=== PATIENT | male | born 1955 | race Caucasian/White ===

== ENCOUNTER 2020-05-25 13:18 | Inpatient (IN) ==
[2020-05-25 15:27] LABS: ABS Eosinophils 0.1 10^3/ul (0-0.6); ABS Lymphocytes 1.2 10^3/ul (1.0-4.8); ABS Monocytes 1.2 10^3/ul (0-0.8); ABS Neutrophils 7.8 10^3/ul (1.5-7.7); Eosinophil % 0.9 %; Hematocrit 43 % (42-52); Hemoglobin 14.9 g/dL (14.0-18.0); Lymphocyte % 11.4 %; Mean Corpuscular HGB Conc 34 g/dL (31-36); Mean Corpuscular Hemoglobin 31 pg (27-31); Mean Corpuscular Volume 90 fL (80-94); Mean Platelet Volume 7.5 fL (7.4-10.4); Platelet Count 316 10^3/uL (150-450); Red Cell Distribution Width 14 % (10-15); White Blood Count 10.2 10^3/uL (3.5-10.8)
[2020-05-25] MEDS ORDERED: Ondansetron 4 mg VIAL 2 MG/ML 2 ml VIAL IV PRN ×2 (15:35→18:33)
[2020-05-25] MEDS ORDERED: Ondansetron ODT 4 mg TAB 4 MG TAB PO PRN (15:35)
[2020-05-25] MEDS ORDERED: diPHENhydraMINE IV 50 MG/ML 1 ml VIAL (BENADRYL) IV PRN (15:35)
[2020-05-25] MEDS ORDERED: diPHENhydraMINE 25 mg TAB PO PRN (15:35)
[2020-05-25] MEDS ORDERED: Lactulose 30 ml UDC PO PRN (15:35)
[2020-05-25] MEDS ORDERED: Magnesium Hydroxide LIQ 30 ML UDC PO PRN (15:35)
[2020-05-25] MEDS ORDERED: Morphine 2 MG/ML SYRINGE IV PRN (15:35)
[2020-05-25 15:39] LABS: Albumin 4.2 g/dL (3.2-5.2); Albumin/Globulin Ratio 1.2 (1-3); BUN/Creatinine Ratio 28.8 (8-20); C Reactive Protein 110.85 mg/L (<8.01); Calcium 9.5 mg/dL (8.6-10.3); EGFR African American 130.9 (>60); EGFR Non-African American 108.2 (>60); Globulin 3.4 g/dL (2-4); Potassium 4.1 mmol/L (3.5-5.0); Total Bilirubin 0.7 mg/dL (0.2-1.0); Total Protein 7.6 g/dL (6.4-8.9)
[2020-05-25] MEDS ORDERED: Bupivacaine 0.25% SDV 30 ML ONE (16:00)
[2020-05-25] MEDS ORDERED: Lactated Ringers 1000 ml BAG 1,000 ML IV SCH (16:00)
[2020-05-25] MEDS ORDERED: Vancomycin per Pharmacy 1 EA NOTE FOLLOW UP SCH (16:00)
[2020-05-25] MEDS ORDERED: fentaNYL 100 mcg/2 ml 50 MCG/ML VIAL ONE ×3 (16:35→17:13)
[2020-05-25] MEDS ORDERED: Midazolam 2 mg/2 ml VIAL 1 mg/ml 2 ml VIAL (2 mg) ONE (16:36)
[2020-05-25] MEDS ORDERED: Lidocaine 2% PF 5 ML VIAL ONE (16:38)
[2020-05-25] MEDS ORDERED: Propofol 10 MG/ML 20 ML BTL ONE (16:38)
[2020-05-25] MEDS ORDERED: Cefepime 2 GM in Dextrose 2 GM/50 ML BAG IV SCH (17:00)
[2020-05-25] MEDS ORDERED: Vancomycin 1500 MG IV - x ONCE IVPB ONE (17:00)
[2020-05-25] MEDS ORDERED: HYDROmorphone 1 MG/1 ML SYRINGE ONE ×3 (17:17→17:49)
[2020-05-25] MEDS ORDERED: Ondansetron 4 mg VIAL 2 MG/ML 2 ml VIAL ONE (17:32)
[2020-05-25] MEDS ORDERED: fentaNYL 100 mcg/2 ml 50 MCG/ML VIAL IV PRN (18:33)
[2020-05-25] MEDS ORDERED: Naloxone 0.4 mg VIAL 0.4 mg/ml 1 ml VIAL IV PRN (18:33)
[2020-05-25] MEDS ORDERED: HYDROmorphone 1 MG/1 ML SYRINGE IV PRN (18:33)
[2020-05-25] MEDS: Magnesium Hydroxide LIQ 30 ML UDC PO SCH (21:23)
[2020-05-26] MEDS ORDERED: Cefepime 2 GM in Dextrose 2 GM/50 ML BAG IV SCH (05:00)
[2020-05-26] MEDS ORDERED: VANCOMYCIN 1500 MG IVPB SCH (06:00)
[2020-05-26 06:27] LABS: ABS Eosinophils 0.2 10^3/ul (0-0.6); ABS Lymphocytes 0.4 10^3/ul (1.0-4.8); ABS Monocytes 0.6 10^3/ul (0-0.8); ABS Neutrophils 6.4 10^3/ul (1.5-7.7); Eosinophil % 2.7 %; Hematocrit 39 % (42-52); Hemoglobin 13.6 g/dL (14.0-18.0); Lymphocyte % 5.6 %; Mean Corpuscular HGB Conc 35 g/dL (31-36); Mean Corpuscular Hemoglobin 31 pg (27-31); Mean Corpuscular Volume 90 fL (80-94); Mean Platelet Volume 7.1 fL (7.4-10.4); Platelet Count 246 10^3/uL (150-450); Red Blood Count 4.35 10^6 /uL (4.18-5.48); Red Cell Distribution Width 14 % (10-15); White Blood Count 7.7 10^3/uL (3.5-10.8)
[2020-05-26 06:48] LABS: BUN/Creatinine Ratio 31.3 (8-20); C Reactive Protein 105.44 mg/L (<8.01); Calcium 8.2 mg/dL (8.6-10.3); EGFR African American 152.3 (>60); EGFR Non-African American 125.9 (>60); Potassium 4.2 mmol/L (3.5-5.0)
[2020-05-26] MEDS: Vitamin THERAPEUTIC TAB PO SCH (09:31)
[2020-05-26] MEDS: Magnesium Hydroxide LIQ 30 ML UDC PO SCH ×2 (09:57→21:26)
[2020-05-26] MEDS: Heparin 5000 UNITS/ML 1 mL VIAL SUBCUT SCH ×2 (14:15→21:26)
[2020-05-26] MEDS: ceFAZolin VIAL 2 GM in NS 0.9% 100 ml BAG 100 ML IVPB SCH (17:19)
[2020-05-27] MEDS: ceFAZolin VIAL 2 GM in NS 0.9% 100 ml BAG 100 ML IVPB SCH (00:56)
[2020-05-27] MEDS: Heparin 5000 UNITS/ML 1 mL VIAL SUBCUT SCH ×3 (05:19→21:58)
[2020-05-27] MEDS ORDERED: Vancomycin Trough Check NOTE FOLLOW UP ONE (05:30)
[2020-05-27 07:12] LABS: Hematocrit 42 % (42-52); Mean Platelet Volume 7.3 fL (7.4-10.4); Platelet Count 282 10^3/uL (150-450)
[2020-05-27] MEDS: Vitamin THERAPEUTIC TAB PO SCH (09:38)
[2020-05-27] MEDS: ceFAZolin 2 GM PREMIX 2 GM/50 ML BAG IVPB SCH ×2 (09:45→16:37)
[2020-05-27] MEDS: Magnesium Hydroxide LIQ 30 ML UDC PO SCH ×2 (10:02→19:22)
[2020-05-28] MEDS: ceFAZolin 2 GM PREMIX 2 GM/50 ML BAG IVPB SCH ×2 (01:24→08:49)
[2020-05-28] MEDS: Heparin 5000 UNITS/ML 1 mL VIAL SUBCUT SCH ×2 (05:55→14:09)
[2020-05-28 06:53] LABS: Hematocrit 41 % (42-52); Hemoglobin 14.1 g/dL (14.0-18.0); Mean Platelet Volume 7.2 fL (7.4-10.4); Platelet Count 308 10^3/uL (150-450)
[2020-05-28] MEDS: Vitamin THERAPEUTIC TAB PO SCH (08:49)
[2020-05-28] MEDS: Magnesium Hydroxide LIQ 30 ML UDC PO SCH (08:50)
[2020-05-28 14:20] VITALS: BP 160/90
== END 2020-05-28 15:20 | disposition home or self-care (01) | DRG 316 ==
LOC: ED 13:18 → SDS 16:00 → INTOOBSV 16:45 → SSU 16:45
PROVIDERS: ADMIT Orthopaedic Surgery Hand Surgery; ATTEND Orthopaedic Surgery Hand Surgery

== ENCOUNTER 2020-06-08 17:38 | Inpatient (IN) ==
[2020-06-08] MEDS ORDERED: Magnesium Hydroxide LIQ 30 ML UDC PO PRN (17:42)
[2020-06-08] MEDS ORDERED: diPHENhydraMINE 25 mg TAB PO PRN (17:42)
[2020-06-08] MEDS ORDERED: Morphine 2 MG/ML SYRINGE IV PRN (17:42)
[2020-06-08] MEDS ORDERED: Ondansetron ODT 4 mg TAB 4 MG TAB PO PRN (17:42)
[2020-06-08] MEDS ORDERED: Lactulose 30 ml UDC PO PRN (17:42)
[2020-06-08] MEDS ORDERED: Ondansetron 4 mg VIAL 2 MG/ML 2 ml VIAL IV PRN ×2 (17:42→21:17)
[2020-06-08] MEDS ORDERED: diPHENhydraMINE IV 50 MG/ML 1 ml VIAL (BENADRYL) IV PRN (17:42)
[2020-06-08] MEDS ORDERED: D5W 1/2 NS 1000 ml BAG 1,000 ML IV SCH (18:00)
[2020-06-08 18:14] LABS: ABS Eosinophils 0.8 10^3/ul (0-0.6); ABS Lymphocytes 1.1 10^3/ul (1.0-4.8); ABS Monocytes 0.9 10^3/ul (0-0.8); ABS Neutrophils 4.6 10^3/ul (1.5-7.7); Eosinophil % 10.2 %; Hematocrit 46 % (42-52); Hemoglobin 15.6 g/dL (14.0-18.0); Lymphocyte % 14.8 %; Mean Corpuscular HGB Conc 34 g/dL (31-36); Mean Corpuscular Hemoglobin 31 pg (27-31); Mean Corpuscular Volume 91 fL (80-94); Mean Platelet Volume 7.4 fL (7.4-10.4); Platelet Count 421 10^3/uL (150-450); Red Blood Count 5.05 10^6 /uL (4.18-5.48); Red Cell Distribution Width 14 % (10-15); White Blood Count 7.4 10^3/uL (3.5-10.8)
[2020-06-08 18:28] LABS: BUN/Creatinine Ratio 22.4 (8-20); C Reactive Protein 9.77 mg/L (<8.01); Calcium 9.5 mg/dL (8.6-10.3); EGFR African American 109.8 (>60); EGFR Non-African American 90.7 (>60); Potassium 4.7 mmol/L (3.5-5.0)
[2020-06-08] MEDS ORDERED: cefTRIAXone 2 GM ADDV.VIAL ONE (20:05)
[2020-06-08] MEDS ORDERED: Bupivacaine 0.25% SDV 30 ML ONE (20:25)
[2020-06-08] MEDS ORDERED: Propofol 10 MG/ML 20 ML BTL ONE (20:29)
[2020-06-08] MEDS ORDERED: Ondansetron 4 mg VIAL 2 MG/ML 2 ml VIAL ONE (20:29)
[2020-06-08] MEDS ORDERED: Lidocaine 2% PF 5 ML VIAL ONE (20:29)
[2020-06-08] MEDS ORDERED: Midazolam 5 mg/5 ml VIAL 1 mg/ml 5 ml VIAL (5 mg) ONE (20:29)
[2020-06-08] MEDS ORDERED: fentaNYL 100 mcg/2 ml 50 MCG/ML VIAL ONE ×2 (20:29→20:57)
[2020-06-08] MEDS ORDERED: Phenylephrine 40 mcg/mL 10mL (400mcg) SYRINGE ONE (20:47)
[2020-06-08] MEDS ORDERED: EPHEDrine (Pressors) 50 MG/ML VIAL ONE (20:49)
[2020-06-08] MEDS ORDERED: Naloxone 0.4 mg VIAL 0.4 mg/ml 1 ml VIAL IV PRN (21:17)
[2020-06-08] MEDS ORDERED: fentaNYL 100 mcg/2 ml 50 MCG/ML VIAL IV PRN (21:17)
[2020-06-08] MEDS: cefTRIAXone 2 GM ADDV.VIAL 2 GM in NS 0.9% 100 ml BAG 100 ML IV SCH ×2 (21:31→21:32)
[2020-06-08 22:00] LABS: Erythrocyte Sed Rate 8 mm/Hr (0-19)
[2020-06-09] MEDS: Magnesium Hydroxide LIQ 30 ML UDC PO SCH ×4 (00:16→20:36)
[2020-06-09 05:36] LABS: ABS Eosinophils 0.7 10^3/ul (0-0.6); ABS Lymphocytes 1.1 10^3/ul (1.0-4.8); ABS Neutrophils 4.4 10^3/ul (1.5-7.7); Eosinophil % 9.9 %; Hematocrit 41 % (42-52); Hemoglobin 13.5 g/dL (14.0-18.0); Lymphocyte % 15.3 %; Mean Corpuscular HGB Conc 33 g/dL (31-36); Mean Corpuscular Hemoglobin 30 pg (27-31); Mean Corpuscular Volume 91 fL (80-94); Mean Platelet Volume 7.6 fL (7.4-10.4); Nucleated Red Blood Cells % 0.1; Platelet Count 333 10^3/uL (150-450); Red Blood Count 4.47 10^6 /uL (4.18-5.48); Red Cell Distribution Width 14 % (10-15); White Blood Count 7.2 10^3/uL (3.5-10.8)
[2020-06-09 05:55] LABS: BUN/Creatinine Ratio 21.5 (8-20); C Reactive Protein 7.39 mg/L (<8.01); Calcium 8.3 mg/dL (8.6-10.3); EGFR African American 119.5 (>60); EGFR Non-African American 98.7 (>60); Potassium 4.1 mmol/L (3.5-5.0)
[2020-06-09] MEDS: Vitamin THERAPEUTIC TAB PO SCH (09:59)
[2020-06-09] MEDS ORDERED: Hemorrhoidal OINT 1 TUBE PR PRN (10:50)
[2020-06-09] MEDS: Heparin 5000 UNITS/ML 1 mL VIAL SUBCUT SCH ×2 (12:11→21:48)
[2020-06-09] MEDS: cefTRIAXone 2 GM ADDV.VIAL 2 GM in NS 0.9% 100 ml BAG 100 ML IV SCH (17:23)
[2020-06-09] MEDS: ceFAZolin 2 GM PREMIX 2 GM/50 ML BAG IVPB SCH (21:49)
[2020-06-10] MEDS: ceFAZolin 2 GM PREMIX 2 GM/50 ML BAG IVPB SCH ×3 (05:58→21:52)
[2020-06-10] MEDS: Heparin 5000 UNITS/ML 1 mL VIAL SUBCUT SCH ×3 (06:00→21:51)
[2020-06-10] MEDS: Vitamin THERAPEUTIC TAB PO SCH (09:41)
[2020-06-10] MEDS: Magnesium Hydroxide LIQ 30 ML UDC PO SCH ×2 (09:41→20:34)
[2020-06-10] MEDS ORDERED: Buffered Lidocaine 1% SYRIN 1 ml INTRADERM ONE (17:00)
[2020-06-11] MEDS: Heparin 5000 UNITS/ML 1 mL VIAL SUBCUT SCH ×3 (05:42→23:30)
[2020-06-11] MEDS: ceFAZolin 2 GM PREMIX 2 GM/50 ML BAG IVPB SCH ×3 (05:42→23:31)
[2020-06-11] MEDS: Magnesium Hydroxide LIQ 30 ML UDC PO SCH ×2 (07:50→19:30)
[2020-06-11] MEDS: Vitamin THERAPEUTIC TAB PO SCH (09:26)
[2020-06-11] MEDS ORDERED: Anidulafungin 200 MG in NS 0.9% 250 ml 200 ML IVPB ONE (20:00)
[2020-06-12] MEDS: ceFAZolin 2 GM PREMIX 2 GM/50 ML BAG IVPB SCH ×2 (06:25→13:54)
[2020-06-12] MEDS: Heparin 5000 UNITS/ML 1 mL VIAL SUBCUT SCH ×2 (06:28→13:55)
[2020-06-12] MEDS: Vitamin THERAPEUTIC TAB PO SCH (07:37)
[2020-06-12 09:49] LABS: Albumin 3.5 g/dL (3.2-5.2); Albumin/Globulin Ratio 1.5 (1-3); Globulin 2.4 g/dL (2-4); Total Bilirubin 0.5 mg/dL (0.2-1.0); Total Protein 5.9 g/dL (6.4-8.9)
[2020-06-12 11:54] VITALS: BP 136/76
[2020-06-12] MEDS ORDERED: Anidulafungin 100 MG in NS 0.9% 100 ml BAG 100 ML IVPB SCH (20:00)
== END 2020-06-12 18:55 | disposition home or self-care (01) | DRG 316 ==
LOC: ED 17:38 → AA 20:21 → SSU 23:59
PROVIDERS: ADMIT Internal Medicine; ATTEND Orthopaedic Surgery Hand Surgery

== ENCOUNTER 2021-05-13 09:15 | Inpatient (IN) ==
[2021-06-01] MEDS ORDERED: Lactated Ringers 1000 ml BAG 1,000 ML IV SCH (06:00)
[2021-06-01] MEDS ORDERED: Buffered Lidocaine 1% SYRIN 1 ml INTRADERM ONE (06:00)
[2021-06-01] MEDS ORDERED: ceFAZolin 2 GM in NS PREMIX 2 GM/100 ML BAG IVPB ONE (10:29)
[2021-06-01] MEDS ORDERED: ROPIVACAINE 5 MG/ML 30 ML BTL (0.5%) ONE (10:40)
[2021-06-01] MEDS ORDERED: Lidocaine 1% MPF 5 ML VIAL ONE (10:40)
[2021-06-01] MEDS ORDERED: Midazolam 2 mg/2 ml VIAL 1 mg/ml 2 ml VIAL (2 mg) ONE ×2 (12:36→12:45)
[2021-06-01] MEDS ORDERED: Ketamine HCL 50 mg/ml 10 ml VIAL (500 MG) ONE (13:25)
[2021-06-01] MEDS ORDERED: Glycopyrrolate IV 0.2 MG/ML 1 ML VIAL ONE (13:25)
[2021-06-01] MEDS ORDERED: Ropivacaine 5 MG/ML 20 ML VIAL 0.5% (100 MG) ONE (14:47)
[2021-06-01] MEDS ORDERED: Phenylephrine 40 mcg/mL 10mL (400mcg) SYRINGE ONE (15:01)
[2021-06-01] MEDS ORDERED: Ondansetron 4 mg VIAL 2 MG/ML 2 ml VIAL IV PRN (15:39)
[2021-06-01] MEDS ORDERED: Magnesium Hydroxide LIQ 30 ML UDC PO PRN (15:39)
[2021-06-01] MEDS ORDERED: diPHENhydraMINE IV 50 MG/ML 1 ml VIAL (BENADRYL) IV PRN (15:39)
[2021-06-01] MEDS ORDERED: Ondansetron ODT 4 mg TAB 4 MG TAB PO PRN (15:39)
[2021-06-01] MEDS ORDERED: Lactulose 30 ml UDC PO PRN (15:39)
[2021-06-01] MEDS ORDERED: diPHENhydraMINE 25 mg TAB PO PRN (15:39)
[2021-06-01] MEDS ORDERED: Furosemide 20 mg/2 ml IV VIAL ONE (17:44)
[2021-06-01] MEDS: Lactated Ringers 1000 ml BAG 1,000 ML IV SCH (18:45)
[2021-06-01] MEDS: ceFAZolin 1 GM ADVAN 1 GM in NS 0.9% 50 ML 50 ML IVPB SCH (21:30)
[2021-06-01] MEDS: Morphine ER 15 mg TAB ** extended release PO SCH (21:33)
[2021-06-01] MEDS: Magnesium Hydroxide LIQ 30 ML UDC PO SCH (21:34)
[2021-06-02] MEDS: Lactated Ringers 1000 ml BAG 1,000 ML IV SCH (04:52)
[2021-06-02] MEDS: ceFAZolin 1 GM ADVAN 1 GM in NS 0.9% 50 ML 50 ML IVPB SCH ×2 (04:53→13:28)
[2021-06-02 05:46] LABS: Hematocrit 35 % (42-52); Hemoglobin 11.9 g/dL (14.0-18.0); Platelet Count 217 10^3/uL (150-450)
[2021-06-02 06:09] LABS: Calcium 8.3 mg/dL (8.6-10.3); eGFR CKD-EPI 101.8 (>60)
[2021-06-02] MEDS: Morphine ER 15 mg TAB ** extended release PO SCH ×2 (08:23→20:19)
[2021-06-02] MEDS: Vitamin THERAPEUTIC TAB PO SCH (08:23)
[2021-06-02] MEDS: Magnesium Hydroxide LIQ 30 ML UDC PO SCH ×2 (09:09→20:19)
[2021-06-02] MEDS: Enoxaparin 40 MG/0.4 ML SYR SUBCUT SCH (10:36)
[2021-06-02] MEDS ORDERED: Enoxaparin 40 MG/0.4 ML SYR SUBCUT SCH (12:00)
[2021-06-03 06:06] LABS: Hematocrit 35 % (42-52); Hemoglobin 11.7 g/dL (14.0-18.0); Mean Platelet Volume 7.1 fL (7.4-10.4); Platelet Count 213 10^3/uL (150-450)
[2021-06-03] MEDS: Vitamin THERAPEUTIC TAB PO SCH (08:23)
[2021-06-03] MEDS: Morphine ER 15 mg TAB ** extended release PO SCH ×2 (08:23→21:19)
[2021-06-03] MEDS: Magnesium Hydroxide LIQ 30 ML UDC PO SCH ×2 (08:25→21:20)
[2021-06-03 10:44] LABS: Calcium 8.5 mg/dL (8.6-10.3); Potassium 4.1 mmol/L (3.5-5.0); eGFR CKD-EPI 99.4 (>60)
[2021-06-03] MEDS ORDERED: Senna TAB 8.6 mg TAB PO PRN (11:03)
[2021-06-03] MEDS: Enoxaparin 40 MG/0.4 ML SYR SUBCUT SCH (11:18)
[2021-06-04 07:14] LABS: Hematocrit 32 % (42-52); Hemoglobin 11.2 g/dL (14.0-18.0); Mean Platelet Volume 7.4 fL (7.4-10.4); Platelet Count 240 10^3/uL (150-450)
[2021-06-04] MEDS: Vitamin THERAPEUTIC TAB PO SCH (08:30)
[2021-06-04] MEDS: Magnesium Hydroxide LIQ 30 ML UDC PO SCH ×2 (08:40→20:50)
[2021-06-04] MEDS: Morphine ER 15 mg TAB ** extended release PO SCH ×2 (08:40→20:50)
[2021-06-04] MEDS: Enoxaparin 40 MG/0.4 ML SYR SUBCUT SCH (11:21)
[2021-06-05 05:42] LABS: Hematocrit 33 % (42-52); Hemoglobin 11.4 g/dL (14.0-18.0); Mean Platelet Volume 7.1 fL (7.4-10.4); Platelet Count 295 10^3/uL (150-450)
[2021-06-05] MEDS: Magnesium Hydroxide LIQ 30 ML UDC PO SCH ×2 (08:26→21:00)
[2021-06-05] MEDS: Vitamin THERAPEUTIC TAB PO SCH (08:28)
[2021-06-05] MEDS: Morphine ER 15 mg TAB ** extended release PO SCH ×2 (08:29→21:00)
[2021-06-05] MEDS: Enoxaparin 40 MG/0.4 ML SYR SUBCUT SCH (10:35)
[2021-06-06 06:22] LABS: Hematocrit 33 % (42-52); Hemoglobin 11.4 g/dL (14.0-18.0); Mean Platelet Volume 7.1 fL (7.4-10.4); Platelet Count 357 10^3/uL (150-450)
[2021-06-06] MEDS: Vitamin THERAPEUTIC TAB PO SCH (08:34)
[2021-06-06] MEDS: Magnesium Hydroxide LIQ 30 ML UDC PO SCH ×2 (08:35→21:47)
[2021-06-06] MEDS: Morphine ER 15 mg TAB ** extended release PO SCH ×2 (08:35→21:46)
[2021-06-06] MEDS: Enoxaparin 40 MG/0.4 ML SYR SUBCUT SCH (10:57)
[2021-06-06] MEDS ORDERED: Heparin 2 UNITS/ML 1000 mls 1,000 ML IV ONE (11:58)
[2021-06-06] MEDS ORDERED: fentaNYL 100 mcg/2 ml 50 MCG/ML VIAL ONE (12:06)
[2021-06-07 06:21] LABS: ABS Basophils 0.1 10^3/ul (0-0.2); ABS Eosinophils 0.6 10^3/ul (0-0.6); ABS Lymphocytes 1.1 10^3/ul (1.0-4.8); ABS Monocytes 1.4 10^3/ul (0-0.8); ABS Neutrophils 4.7 10^3/ul (1.5-7.7); Eosinophil % 7.1 %; Hematocrit 35 % (42-52); Hemoglobin 11.8 g/dL (14.0-18.0); Lymphocyte % 14.4 %; Mean Corpuscular HGB Conc 34 g/dL (31-36); Mean Corpuscular Hemoglobin 31 pg (27-31); Mean Corpuscular Volume 91 fL (80-94); Mean Platelet Volume 6.9 fL (7.4-10.4); Platelet Count 408 10^3/uL (150-450); Red Cell Distribution Width 14 % (10-15); White Blood Count 7.8 10^3/uL (3.5-10.8)
[2021-06-07 06:50] LABS: Calcium 8.7 mg/dL (8.6-10.3); Magnesium 2.2 mg/dL (1.9-2.7); Potassium 4.8 mmol/L (3.5-5.0); eGFR CKD-EPI 104.1 (>60)
[2021-06-07] MEDS: Morphine ER 15 mg TAB ** extended release PO SCH (09:19)
[2021-06-07] MEDS: Magnesium Hydroxide LIQ 30 ML UDC PO SCH (09:20)
[2021-06-07] MEDS: Vitamin THERAPEUTIC TAB PO SCH (09:34)
[2021-06-07 11:19] VITALS: BP 107/72
== END 2021-06-07 15:46 | disposition home or self-care (01) | DRG 470 ==
LOC: AA 06-01 10:04 → INTOOBSV 06-01 10:04 → SSU 06-01 18:20
PROVIDERS: ADMIT Orthopaedic Surgery Adult Reconstructive Orthopaedic Surgery; ATTEND Orthopaedic Surgery Adult Reconstructive Orthopaedic Surgery

== ENCOUNTER 2022-03-01 07:04 | Inpatient (IN) ==
[~2022-03-01 07:04] MED LIST: Buffered Lidocaine 1% SYRIN 1 ml INTRADERM ONE; Lactated Ringers 1000 ml BAG 1,000 ML IV SCH
[2022-03-01] MEDS ORDERED: ceFAZolin 2 GM PREMIX 2 GM/50 ML BAG ONE (07:15)
[2022-03-01] MEDS ORDERED: Propofol 10 MG/ML 20 ML BTL ONE ×4 (07:23→11:23)
[2022-03-01] MEDS ORDERED: Lidocaine 2% PF 5 ML VIAL ONE (07:24)
[2022-03-01] MEDS ORDERED: ROPIVACAINE 5 MG/ML 30 ML BTL (0.5%) ONE ×2 (07:52→08:28)
[2022-03-01] MEDS ORDERED: Midazolam 2 mg/2 ml VIAL 1 mg/ml 2 ml VIAL (2 mg) ONE ×2 (08:01→09:04)
[2022-03-01] MEDS ORDERED: Glycopyrrolate IV 0.2 MG/ML 1 ML VIAL ONE (09:23)
[2022-03-01] MEDS ORDERED: Ketamine HCL 50 mg/ml 10 ml VIAL (500 MG) ONE (09:23)
[2022-03-01] MEDS ORDERED: Phenylephrine IV 10 MG/ML 1 ml VIAL ONE (09:38)
[2022-03-01] MEDS ORDERED: Acetaminophen IV 1 GM/100ML 1,000 MG/100 ML BAG IV ONE (09:47)
[2022-03-01] MEDS ORDERED: Ondansetron 4 mg VIAL 2 MG/ML 2 ml VIAL ONE (09:50)
[2022-03-01] MEDS ORDERED: Lactulose 30 ml UDC PO PRN (10:10)
[2022-03-01] MEDS ORDERED: Ondansetron ODT 4 mg TAB 4 MG TAB PO PRN (10:10)
[2022-03-01] MEDS ORDERED: Magnesium Hydroxide LIQ 30 ML UDC PO PRN (10:10)
[2022-03-01] MEDS ORDERED: Morphine 2 MG/ML SYRINGE IV PRN (10:10)
[2022-03-01] MEDS ORDERED: Ondansetron 4 mg VIAL 2 MG/ML 2 ml VIAL IV PRN ×2 (10:10→11:37)
[2022-03-01] MEDS ORDERED: Acetaminophen IV 1 GM/100ML 1,000 MG/100 ML BAG IV PRN (11:37)
[2022-03-01] MEDS ORDERED: Naloxone 0.4 mg VIAL 0.4 mg/ml 1 ml VIAL IV PRN (11:37)
[2022-03-01] MEDS ORDERED: fentaNYL 100 mcg/2 ml 50 MCG/ML VIAL IV PRN (11:37)
[2022-03-01] MEDS: Lactated Ringers 1000 ml BAG 1,000 ML IV SCH (14:17)
[2022-03-01] MEDS: ceFAZolin 1 GM ADVAN 1 GM in NS 0.9% 50 ML 50 ML IVPB SCH (16:12)
[2022-03-01] MEDS: Magnesium Hydroxide LIQ 30 ML UDC PO SCH (22:21)
[2022-03-02] MEDS: Lactated Ringers 1000 ml BAG 1,000 ML IV SCH (00:38)
[2022-03-02] MEDS: ceFAZolin 1 GM ADVAN 1 GM in NS 0.9% 50 ML 50 ML IVPB SCH ×2 (00:58→09:19)
[2022-03-02 07:39] LABS: Hematocrit 39 % (42-52); Hemoglobin 13.1 g/dL (14.0-18.0); Mean Platelet Volume 7.2 fL (7.4-10.4); Platelet Count 194 10^3/uL (150-450)
[2022-03-02 08:25] LABS: Calcium 8.3 mg/dL (8.6-10.3); Potassium 4.3 mmol/L (3.5-5.0); eGFR CKD-EPI 100.3 (>60)
[2022-03-02] MEDS: Vitamin THERAPEUTIC TAB PO SCH (09:13)
[2022-03-02] MEDS: Magnesium Hydroxide LIQ 30 ML UDC PO SCH ×2 (09:16→20:03)
[2022-03-02 13:03] LABS: PCO2 Arterial 36 mmHg (35-45); PO2 Arterial 86 mmHg (80-100)
[2022-03-02] MEDS ORDERED: Iohexol 350 (CONTRAST) 500 ML MDV IV ONE (13:24)
[2022-03-02 15:02] LABS: High Sensitivity Troponin 1 Hr 6 pg/mL (<20)
[2022-03-02] MEDS ORDERED: Heparin DRIP 25,000 UNITS BAG 25,000 UNITS/500 ML BAG IV SCH (15:15)
[2022-03-02] MEDS ORDERED: Heparin 5000 UNITS/ML 1 mL VIAL IV SCH (16:00)
[2022-03-03 06:56] LABS: ABS Eosinophils 0.3 10^3/ul (0-0.6); ABS Lymphocytes 0.6 10^3/ul (1.0-4.8); ABS Monocytes 1.4 10^3/ul (0-0.8); Eosinophil % 2.9 %; Hematocrit 37 % (42-52); Hemoglobin 12.5 g/dL (14.0-18.0); Lymphocyte % 6.9 %; Mean Corpuscular HGB Conc 34 g/dL (31-36); Mean Corpuscular Hemoglobin 31 pg (27-31); Mean Corpuscular Volume 92 fL (80-94); Mean Platelet Volume 7.5 fL (7.4-10.4); Platelet Count 211 10^3/uL (150-450); Red Blood Count 4.03 10^6 /uL (4.18-5.48); Red Cell Distribution Width 14 % (10-15); White Blood Count 9.3 10^3/uL (3.5-10.8)
[2022-03-03 07:49] LABS: Calcium 8.4 mg/dL (8.6-10.3); Magnesium 2.2 mg/dL (1.9-2.7); Phosphorus 2.7 mg/dL (2.5-5.0); Potassium 4.7 mmol/L (3.5-5.0); eGFR CKD-EPI 102.5 (>60)
[2022-03-03] MEDS: Vitamin THERAPEUTIC TAB PO SCH (10:11)
[2022-03-03] MEDS: Magnesium Hydroxide LIQ 30 ML UDC PO SCH ×2 (10:11→21:03)
[2022-03-04 06:01] LABS: Hematocrit 36 % (42-52); Hemoglobin 11.9 g/dL (14.0-18.0); Mean Platelet Volume 7.4 fL (7.4-10.4); Platelet Count 229 10^3/uL (150-450)
[2022-03-04] MEDS: Vitamin THERAPEUTIC TAB PO SCH (07:58)
[2022-03-04] MEDS: Magnesium Hydroxide LIQ 30 ML UDC PO SCH ×2 (07:58→11:53)
[2022-03-04 11:05] VITALS: BP 157/88
== END 2022-03-04 16:00 | disposition home health service (06) | DRG 470 ==
LOC: AA 07:04 → INTOOBSV 07:04 → SSU 10:10
PROVIDERS: ADMIT Orthopaedic Surgery Adult Reconstructive Orthopaedic Surgery; ATTEND Orthopaedic Surgery Adult Reconstructive Orthopaedic Surgery